=== PATIENT | female | born 1970 | race Caucasian/White ===

== ENCOUNTER 2020-09-03 19:21 | Emergency (ER) | payer SELFPAY ==
[~2020-09-03] VITALS: Ht 182.9 cm; Wt 88.5 kg
--- NOTE | 2020-09-03 19:37 | Emergency Department Note ---
History of Present Illnes History of Present Illness Chief Complaint: Extremity Trauma/Pain History of Present Illness This is a 50 year old female s/p fall 2 days prior with resultant injury R elbow. Historian: Patient Arrival Mode: Car Onset (how long ago): day(s) Location: R elbow Radiation: Reports extremity Severity: moderate Onset quality: sudden Duration (how long): day(s) (2) Timing of current episode: constant Progression: worsening Chronicity: new Context: Reports trauma/injury Relieving factors: movement Exacerbating factors: immobilization Associated symptoms: Denies denies other symptoms, Denies confusion, Denies chest pain, Denies cough, Denies diaphoresis, Denies fever/chills, Denies headaches, Denies loss of appetite, Denies malaise, Denies nausea/vomiting, Denies rash, Denies seizure, Denies shortness of breath, Denies syncope, Denies weakness, Denies other Past Medical/Family History Physician Review I have reviewed the patient's past medical and family history. Any updates have been documented here. Past Medical History Recent Fever: No Clinical Suspicion of Infectio: No New/Unexplained Change in Ment: No Other Medical History: anxiety Other Surgery: x2, breast implants x3 Social History Smoking Cessation: Never Smoker Alcohol Use: None Any Illegal Drug Use: No Other Last Tetanus: ood Review of Systems Review of Systems Constitutional: Reports no symptoms EENTM: Reports no symptoms Cardiovascular: Reports no symptoms Respiratory: Reports no symptoms Gastrointestinal: Reports no symptoms Genitourinary: Reports no symptoms Musculoskeletal: Reports joint pain Integumentary: Reports no symptoms Neurological: Reports no symptoms Psychological: Reports no symptoms Endocrine: Reports no symptoms Hematological/Lymphatic: Reports no symptoms Physical Exam Related Data Allergies: Coded Allergies: No Known Allergies (Unverified , 06/25/16) Vital signs reviewed: Yes Physical Exam CONSTITUTIONAL Constitutional: Present well-developed, Present well-nourished HENT HENT: Present normocephalic, Present atraumatic, Present oropharynx clear/moist, Present nose normal HENT L/R: Present left ext ear normal, Present right ext ear normal EYES Eyes: Reports PERRL, Reports conjunctivae normal NECK Neck: Present ROM normal PULMONARY Pulmonary: Present effort normal, Present breath sounds normal CARDIOVASCULAR Cardiovascular: Present regular rhythm, Present heart sounds normal, Present capillary refill normal, Present normal rate GASTROINTESTINAL Abdominal: Present soft, Present nontender, Present bowel sounds normal GENITOURINARY Genitourinary: Present exam deferred SKIN Skin: Present warm, Present dry MUSCULOSKELETAL Musculoskeletal: Present tenderness (R elbow), Present other (R UE N/V intact) NEUROLOGICAL Neurological: Present alert, Present oriented x 3, Present no gross motor or sensory deficits PSYCHOLOGICAL Psychological: Present mood/affect normal, Present judgement normal Results Imaging Imaging results reviewed: Yes Impressions [place] [id number] Patient Name: BESSIE EL MR #: [id number] : 1970 Age/Sex: 50/F Req #: [id number] Adm Physician: Ordered by: COLETTE HUGHES DO Report #: [id number] Location: ER Room/Bed: Procedure: [id number] DX/ELBOW RIGHT COMPLETE Exam Date: 09/03/20 Exam Time: 1999 REPORT STATUS: Signed X-ray right elbow 3 views HISTORY: Pain. COMPARISON: None available. FINDINGS: Bones: No acute displaced fracture. Osseous alignment is within normal limits. Joints: The joint spaces are well-maintained. Soft tissues: Mild soft tissue edema about the elbow. IMPRESSION: Mild soft tissue edema about the elbow. No acute radiographic osseous abnormality. Signed by: Cesar Arzate DO on 09/03/2020 8:14 PM Dictated By: CESAR ARZATE DO 13 Transcribed By: CARL on 09/03/202013 COPY TO: COLETTE HUGHES DO~ Assessment & Plan Medical Decision Making MDM Diff Dx : dislocation, fx, sprain strain, Assessment & Plan Final Impression: (1) Right elbow pain COLETTE HUGHES DO Sep 03, 2020 19:36
--- NOTE | 2020-09-03 20:17 | Diagnostic Imaging Report ---
X-ray right elbow 3 views HISTORY: Pain. COMPARISON: None available. FINDINGS: Bones: No acute displaced fracture. Osseous alignment is within normal limits. Joints: The joint spaces are well-maintained. Soft tissues: Mild soft tissue edema about the elbow. IMPRESSION: Mild soft tissue edema about the elbow. No acute radiographic osseous abnormality. Signed by: Cesar Arzate DO on 09/03/2020 8:14 PM
[2020-09-03 20:26] VITALS: BP 135/78
== END 2020-09-03 20:33 | disposition home or self-care (01) ==
LOC: ER 19:25
DX: M25.521 Pain in right elbow (principal); W01.0XXA Fall on same level from slipping, tripping and stumbling without subsequent striking against object, initial encounter; Y93.01 Activity, walking, marching and hiking; Y92.89 Other specified places as the place of occurrence of the external cause
CPT/HCPCS: 99283